=== PATIENT | female | born 1965 | race Two or more races ===

== ENCOUNTER 2025-08-16 07:25 | Day surgery (SDC) | payer MEDICARE, MEDICAID, SELFPAY ==
--- NOTE | 2025-08-14 12:07 | EKG_ITS ---
[facility] Test Date: 2025-08-14 Pat Name: CISCO STEWARD Department: Room: - Gender: Female Hotel Room Attendant: MT : 1965 Requested By: Robert High Order Number: [id number] Reading MD: Robert High Measurements Intervals [place] Rate: 123 P: 41 LA: 143 QRS: -19 QRSD: 82 T: 30 QT: 413 QTc: 593 Interpretive Statements SINUS TACHYCARDIA LOW QRS VOLTAGE IN PRECORDIAL LEADS [QRS DEFLECTION < 1.0 mV IN CHEST LEADS] POSSIBLE ANTERIOR MYOCARDIAL INFARCTION , PROBABLY OLD [30 ms Q WAVE IN V3/V4, OR R < 0.2 mV IN V4] ABNORMAL RHYTHM ECG Compared to ECG 06/26/2024 12:13:34 Myocardial infarct finding now present Indeterminate axis no longer present /store/S0/[id number]/ecg/[id number].pdf
[2025-08-14 12:57] LABS: Alanine Aminotransferase 18 U/L (10-49); Albumin, Serum 4.8 gm/dL (3.4-4.8); Albumin/Globulin Ratio 1.5 (1.2-2.2); Alkaline Phosphatase 115 U/L (46-116); Anion Gap 11 (7-16); Aspartate Amino Transferase 24 U/L (0-34); BUN/Creatinine Ratio 18 Ratio (12-20); Bilirubin,Total 0.3 mg/dL (0.3-1.2); Blood Urea Nitrogen 11 mg/dL (9-23); Calcium 10.1 mg/dL (8.3-10.6); Calcium (Corrected) 10.1 mg/dL (8.5-10.1); Carbon Dioxide 27.1 mMol/L (20.0-31.0); Chloride 99 mMol/L (98-107); Creatinine (Component) 0.6 mg/dL (0.6-1.3); Globulin 3.2 gm/dL (2.3-3.5); Glucose 103 mg/dL (74-106); Osmolality,Calculated 273 (275-295); Potassium 3.8 mMol/L (3.4-5.1); Sodium 137 mMol/L (136-145); Total Protein 8.0 gm/dL (5.7-8.2); eGFR > 60 See Note
[2025-08-16] VITALS (7 sets, daily range): BP systolic 108–144; BP diastolic 58–87; PULSE 93–121; RESP 16–20; TEMP 36.3–36.8; O2SAT 98–100; BMI 28.6
[2025-08-16] MEDS: RINGERS LACTATED 500 ML 500 ML 20 ML IV (11:24)
--- NOTE | 2025-08-16 11:51 | SUR.PHASEII ---
1151: pt received from OR via [facility]. received report from SANTOS Bianchi and Dr. High. pt alert and oriented. no s/s of resp. distress or discomfort. no s/s of pain or discomfort.
--- NOTE | 2025-08-16 12:13 | SUR.PHASEII ---
1213: caregiver at bedside
--- NOTE | 2025-08-16 12:21 | SUR.PHASEII ---
1222: drinking water without any difficulty
--- NOTE | 2025-08-16 12:32 | SUR.PHASEII ---
1232: pt discharge to home via wheelchair. pt alert and oriented. no s/s of resp. distress or discomfort. no s/s of pain or discomfort. discharge instructions given to caregiver, verbalizes understanding. all belongings brought given back to caregiver.
== END 2025-08-16 12:32 | disposition home or self-care (01) ==
PROVIDERS: Anesthesiology; Referring Provider Surgery; Visit Provider Surgery
PROC: 0DJD8ZZ Inspection of Lower Intestinal Tract, Via Natural or Artificial Opening Endoscopic (ICD-10-PCS; CPT 45378; principal; 2025-08-16 08:00)
DX: K57.30 Diverticulosis of large intestine without perforation or abscess without bleeding (principal); K62.89 Other specified diseases of anus and rectum; K64.9 Unspecified hemorrhoids; E78.00 Pure hypercholesterolemia, unspecified; I10 Essential (primary) hypertension; Z79.899 Other long term (current) drug therapy
CPT/HCPCS: 45378; 36415; 80053; 93005; A4649; J7120